=== PATIENT | male | born 1940 | race Hispanic/Latino ===

== ENCOUNTER 2023-12-08 06:52 | Observation (INO) | payer MEDICARE, OTHER ==
[2023-12-07 11:26] LABS: BASOPHILS # (AUTO) 0.1 (0.0-0.1); EOSINOPHILS # (AUTO) 0.3 (0.0-0.4); EOSINOPHILS % 4.2 % (0.0-6.0); HEMATOCRIT 42.4 % (38.2-49.6); HEMOGLOBIN 14.5 g/dL (14.0-18.0); LYMPHOCYTES # (AUTO) 2.5 (1.0-3.2); LYMPHOCYTES % 40.7 % (18.0-39.1); MEAN CORPUSCULAR HGB CONC 34.2 g/dL (31-35); MEAN CORPUSCULAR VOLUME 90.6 fL (81-99); MONOCYTES # (AUTO) 0.6 (0.2-0.8); MONOCYTES % 10.4 % (4.4-11.3); NEUTROPHILS # (AUTO) 2.7 (2.1-6.9); NEUTROPHILS % 43.5 % (38.7-80.0); PLATELET COUNT 191 x10e3/uL (140-360); RED BLOOD COUNT 4.68 x10e6/uL (4.3-5.7); RED CELL DISTRIBUTION WIDTH 13.3 % (11.7-14.4); WHITE BLOOD COUNT 6.16 x10e3/uL (4.8-10.8)
[2023-12-07 12:02] LABS: ANION GAP 12.1 mmol/L (8-16); CALCIUM 9.2 mg/dL (8.4-10.2); CREATININE, SERUM 1.04 mg/dL (0.72-1.25); POTASSIUM 4.1 mmol/L (3.5-5.1)
[~2023-12-08 06:52] MED LIST: AMOXICILLIN250 MG PO; ASPIRIN EC81 MG PO; ASPIRIN81 MG PO; BENZONATATE100 MG PO; COLLAGEN 15001 EACH PO; CRESTOR10 MG PO; DEPO-MEDRO80 MG/1 ML PO; FAMOTIDINE20 MG PO; LEVOTHYROXINE112 MCG PO; LISINOPRIL2.5 MG PO; METFORMIN HCL500 MG PO; NAPROSYN500 MG PO; TRICOR145 MG PO
[2023-12-08] MEDS: DEXAMETHASONE SOD PHOS 10 MG/1 ML VIAL ONE (07:42)
[2023-12-08] MEDS: GABAPENTIN 300 MG CAP ONE (07:42)
[2023-12-08] MEDS: CEFAZOLIN SODIUM 2 GM ONE (07:43)
[2023-12-08] MEDS: CELECOXIB 200 MG CAP ONE (07:43)
[2023-12-08] MEDS: LACTATED RINGER'S 1,000 ML ONE (07:44)
[2023-12-08] MEDS ORDERED: ROPIVACAINE 246.25 MG, EPINEPHRINE HCL 1:1000 1ML 0.5 MG, CLONIDINE HCL 0.08 MG, KETORO... INJ ONE (08:00)
[2023-12-08] MEDS ORDERED: Vancomycin IV 500 MG ONE (08:22)
[2023-12-08] MEDS ORDERED: TRANEXAMIC ACID 20 ML ONE (08:23)
[2023-12-08] MEDS ORDERED: SODIUM CHLORIDE 0.9% 500ML 500 ML ONE (08:23)
[2023-12-08] MEDS ORDERED: FENTANYL CITRATE/PF 100MCG/2 ML INJ ONE (09:37)
[2023-12-08] MEDS ORDERED: DIPHENHYDRAMINE HCL INJ 50 MG/ML VIAL IV PRN (10:00)
[2023-12-08] MEDS ORDERED: SODIUM CHLORIDE 0.9% 1000ML 1,000 ML IV SCH (10:00)
[2023-12-08] MEDS ORDERED: HYDROCODONE/APAP 5MG-325MG TAB PO PRN (10:00)
[2023-12-08] MEDS ORDERED: ONDANSETRON HCL INJ 2MG/ML 2ML 2 MG/ML VIAL IV PRN (10:00)
[2023-12-08] MEDS ORDERED: HYDROCODONE/APAP 7.5MG-325MG 1 EA TAB PO PRN (10:00)
[2023-12-08] MEDS ORDERED: DOCUSATE SODIUM 100 MG CAP PO PRN (10:00)
[2023-12-08] MEDS: FENTANYL CITRATE/PF 100MCG/2 ML INJ ONE (10:40)
[2023-12-08] MEDS ORDERED: PROPOFOL IV EMULSION 10 MG/ML 20 ML VIAL ONE ×2 (11:25→13:25)
[2023-12-08] MEDS ORDERED: LIDOCAINE HCL 2% LOCAL INJ 5 ML SDV VIAL INJ ONE (13:25)
[2023-12-08] MEDS ORDERED: ONDANSETRON HCL INJ 2MG/ML 2ML 2 MG/ML VIAL ONE (13:25)
[2023-12-08] MEDS ORDERED: EPHEDRINE SULFATE INJ 50 MG/ML VIAL ONE (13:25)
[2023-12-08] MEDS ORDERED: SEVOFLURANE INHAL SOLN 250 ML PEN BTL ONE (13:25)
[2023-12-08] MEDS ORDERED: ROPIVACAINE 0.5% 5 MG/ML 30 ML SDV ONE (13:44)
[2023-12-08] MEDS ORDERED: EPINEPHRINE HCL 1:1000 1ML 1 MG/ML AMP ONE (13:44)
[2023-12-08 16:00] VITALS: BP 141/83; PULSE 74; RESP 16; O2SAT 96
[2023-12-08] MEDS ORDERED: CELECOXIB 200 MG CAP PO SCH (17:00)
[2023-12-08] MEDS ORDERED: ASPIRIN 325 MG TAB PO SCH (17:00)
[2023-12-09] MEDS ORDERED: ACETAMINOPHEN 1000 MG/100 ML IV PRN (10:00)
== END 2023-12-08 18:20 | disposition home health service (06) ==
LOC: OR 06:52 → PACU V 11:23
PROVIDERS: ADMIT Specialist; ATTEND Specialist
DX: M17.11 Unilateral primary osteoarthritis, right knee (principal); Z96.652 Presence of left artificial knee joint; I10 Essential (primary) hypertension; E78.00 Pure hypercholesterolemia, unspecified; E11.9 Type 2 diabetes mellitus without complications; Z79.84 Long term (current) use of oral hypoglycemic drugs; G47.33 Obstructive sleep apnea (adult) (pediatric); K21.9 Gastro-esophageal reflux disease without esophagitis; Z01.812 Encounter for preprocedural laboratory examination; Z79.899 Other long term (current) drug therapy; Z79.1 Long term (current) use of non-steroidal anti-inflammatories (NSAID); Z79.82 Long term (current) use of aspirin
CPT/HCPCS: 27447; 36415; 73560; 80048; 85025; 86850; 86900; 97110; 97116; 97162; 97530; C1713 ×2; C1776; G0378; J0171; J0690; J1100; J1885; J2001; J2405; J2704; J2795; J3010; J3370; J7040; J7121